=== PATIENT | male | born 1930 | race Caucasian/White ===

== ENCOUNTER 2018-06-22 12:21 | Inpatient (IN) | payer OTHER ==
[~2018-06-22] VITALS: Ht 180.3 cm; Wt 72.6 kg
[2018-06-22 13:15] LABS: ABSOLUTE BASOPHILS 0.1 thou/uL (0.0-0.2); ABSOLUTE EOSINOPHILS 0.1 thou/uL (0.0-0.7); ABSOLUTE LYMPHOCYTES 3.6 thou/uL (0.8-5.3); ABSOLUTE MONOCYTES 0.6 thou/uL (0.0-1.2); ABSOLUTE NEUTROPHILS 5.9 thou/uL (1.6-8.1); BASOPHILS 0.7 %; HEMATOCRIT 32.1 % (42.0-52.0); HEMOGLOBIN 10.7 gm/dL (14.0-18.0); MCH 30.6 pg (26.0-34.0); MCHC 33.2 g/dL (28.0-37.0); MCV 92.1 fL (80.0-100.0); MONOCYTES 5.9 %; MPV 7.3 fl. (7.2-11.1); NUCLEATED RBCS 0 /100WBC; PLATELET COUNT* 250 thou/uL (150-400); POLYS 57.4 %; RBC 3.49 mil/uL (4.50-6.00); RDW-CV 15.1 % (10.5-14.5); WBC 10.3 thou/uL (4.0-11.0)
[2018-06-22 13:29] LABS: ALBUMIN 3.2 g/dL (3.4-5.0); CALCIUM 8.5 mg/dL (8.5-10.1); CREATININE 1.1 mg/dL (0.6-1.3); POTASSIUM 3.7 mmol/L (3.5-5.1); TOTAL BILIRUBIN 0.3 mg/dL (<0.1-1.0)
[2018-06-22 14:02] LABS: URINE BILIRUBIN NEGATIVE (Negative); URINE BLOOD 2+ (Negative); URINE CLARITY CLOUDY; URINE COLOR YELLOW; URINE GLUCOSE-RANDOM 3+ (Negative); URINE KETONES TRACE (Negative); URINE PROTEIN 1+ (Negative); URINE SPECIFIC GRAVITY 1.025 (1.005-1.030); URINE UROBILINOGEN 0.2 E.U./dl (0.2-1.0)
[2018-06-22 14:05] LABS: URINE LEUKOCYTES-REFLEX 2+ (Negative); URINE NITRITE-REFLEX POSITIVE (Negative)
[2018-06-22 14:15] LABS: BACTERIA-REFLEX >30 Many /HPF (None Seen); CASTS None Seen /LPF (None Seen); CRYSTALS None Seen /LPF (None Seen); SQUAMOUS 0-3 Few /LPF (0-3); URINE RBC 0-2 Rare /HPF (0-2); URINE WBC-REFLEX >25 Many /HPF (0-5)
[2018-06-22 20:09] VITALS: BP 174/61
[2018-06-22 20:40] VITALS: BP 158/70
[2018-06-23 07:50] VITALS: BP 143/69
[2018-06-23 15:54] VITALS: BP 136/59
[2018-06-23 16:54] VITALS: BP 136/59
[2018-06-23] MEDS ORDERED: LEVEMIR SUBQ (17:49)
[2018-06-23] MEDS ORDERED: SENNA8.6 MG PO (17:49)
[2018-06-23] MEDS ORDERED: TYLENOL325 MG PO (17:50)
[2018-06-23] MEDS ORDERED: THROAT LOZENGE1 EACH PO (17:50)
[2018-06-23] MEDS ORDERED: HYDROCODON-ACE1 EAC7 PO (17:51)
[2018-06-23] MEDS ORDERED: LOPERAMIDE 2 MG2 M1 PO (17:52)
[2018-06-23] MEDS ORDERED: BAYER CHEWABLE81 MG PO (17:53)
[2018-06-23] MEDS ORDERED: FINASTERIDE5 MG PO (17:53)
[2018-06-23] MEDS ORDERED: METFORMIN HCL500 MG PO (17:54)
[2018-06-23] MEDS ORDERED: ZOCOR20 MG PO (17:54)
[2018-06-23 20:00] VITALS: BP 155/80
[2018-06-24] VITALS: BP 138/57
[2018-06-24 05:03] LABS: CALCIUM 7.9 mg/dL (8.5-10.1); CREATININE 0.9 mg/dL (0.6-1.3); MAGNESIUM 1.6 mg/dL (1.8-2.4); POTASSIUM 3.5 mmol/L (3.5-5.1)
[2018-06-24 07:50] VITALS: BP 145/68
[2018-06-24 13:47] VITALS: BP 145/68
[2018-06-24] MEDS ORDERED: KEFLEX500 M2 PO (14:32)
[2018-06-24 16:00] VITALS: BP 131/65
[2018-06-24 20:02] VITALS: BP 122/60
[2018-06-25 07:40] VITALS: BP 139/60
--- NOTE | 2018-06-25 14:58 | EKG ---
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
[2018-06-25 15:27] VITALS: BP 132/69
[2018-06-26 00:03] VITALS: BP 161/80
[2018-06-26 04:24] LABS: ABSOLUTE EOSINOPHILS 0.2 thou/uL (0.0-0.7); ABSOLUTE LYMPHOCYTES 3.7 thou/uL (0.8-5.3); ABSOLUTE MONOCYTES 0.6 thou/uL (0.0-1.2); ABSOLUTE NEUTROPHILS 4.7 thou/uL (1.6-8.1); BASOPHILS 0.4 %; EOSINOPHILS 2.2 %; HEMATOCRIT 29.6 % (42.0-52.0); HEMOGLOBIN 9.8 gm/dL (14.0-18.0); LYMPHOCYTES 39.8 %; MCH 30.7 pg (26.0-34.0); MCHC 33.1 g/dL (28.0-37.0); MCV 92.8 fL (80.0-100.0); MONOCYTES 6.7 %; MPV 8.1 fl. (7.2-11.1); NUCLEATED RBCS 0 /100WBC; PLATELET COUNT* 241 thou/uL (150-400); POLYS 50.9 %; RBC 3.19 mil/uL (4.50-6.00); RDW-CV 14.7 % (10.5-14.5); WBC 9.3 thou/uL (4.0-11.0)
[2018-06-26 04:37] LABS: CALCIUM 8.2 mg/dL (8.5-10.1); CREATININE 0.9 mg/dL (0.6-1.3); POTASSIUM 3.3 mmol/L (3.5-5.1)
[2018-06-26 08:00] VITALS: BP 135/58
[2018-06-26 13:10] VITALS: BP 145/68
[2018-06-26 16:00] VITALS: BP 168/83
[2018-06-26 19:45] VITALS: BP 156/83
[2018-06-27 01:00] VITALS: BP 141/78
[2018-06-27 05:00] VITALS: BP 154/85
[2018-06-27 08:10] VITALS: BP 137/65
--- NOTE | 2018-06-27 11:38 | OP ---
[facility] [address] [place] [address] OPERATIVE REPORT Name: JACQUI LEONARD Room: [address] IN M.R.#: [id number] Admission: 06/22/18 Attend Phys: Michelle Herring Discharge: Date of : [birth year] Report #: [id number] THIS REPORT FOR: //name// CC: FRANNIE physician/PCP Flaquito Munoz DATE OF SERVICE: 06/22/2018 DIAGNOSIS: Urinary retention. PROCEDURE: Attempted Perez catheter placement, attempted flexible cystoscopy and then placement of suprapubic drain into the bladder. No complication. INDICATIONS: This is an 87-year-old white male with history of prostate cancer. He has urethral stricture. He has seen a urologist over at [facility] and presents now in urinary retention. Nurses were unable to put a Perez catheter in and then I was called. DESCRIPTION OF COURSE: The patient was sterilely prepped and draped. I was unable to get a Perez catheter to go in or a filiform to go into the bladder. I performed flexible cystoscopy, could only get to the mid urethra, very tight urethral stricture, 2 other false passages. I could not get a wire to go. I could get a wire to go past the first urethral stricture, but not the second, and I could not dilate the first urethral strictures as long and dense. I tried multiple ways in which to dilate the stricture, ureteral balloon dilator and Amplatz dilators and still would not be able to stretch it up, so I decided to take him to the operating room; however, he just ate a peanut butter and jelly sandwich about an hour before, so there is increased risk of that and given his advanced age, it was decided to place a suprapubic tube. There was not a standard suprapubic tube in the hospital, so I went to Interventional Radiology and obtained an 8-Croat[place] pigtail drainage tube, and I was able to percutaneously insert that into the bladder, which was done without complications. The urine flow was clear and got out approximately 700 mL of lexie-colored urine. This will be sent for culture. The patient will be given Rocephin and then the plan will be to eventually perform DVIU. As long as this small suprapubic tube is draining, we can leave this and then do a DVIU on an elective basis. This was thoroughly informed to the patient and the patient's daughter was present. <ELECTRONICALLY SIGNED> By: Moises Hyman MD 06/27/18 1138 [id number] Hyman MD /nt
[2018-06-27 17:12] VITALS: BP 114/54
[2018-06-27 22:50] VITALS: BP 138/54
[2018-06-28 08:20] VITALS: BP 143/59
[2018-06-28 11:20] VITALS: BP 145/68
[2018-06-28] MEDS ORDERED: BACTRIM DS TAB1 EACH PO (11:42)
[2018-06-28] MEDS ORDERED: HYDROCODON-ACE1 EAC7 PO (11:43)
[2018-06-28 11:50] VITALS: BP 145/68
[2018-06-28 12:06] VITALS: BP 145/68
[2018-06-28 13:23] VITALS: BP 145/68
== END 2018-06-28 13:41 | DRG 697 ==
LOC: M.ERS 12:21 → M.TBA-ER 18:04 → M.ORTHSURG 18:04 → M.TBA-ER 20:12 → M.ORTHSURG 20:23
PROVIDERS: Family Medicine; Physician Assistant; ADMIT Internal Medicine
PROC: 0T9B80Z Drainage of Bladder with Drainage Device, Via Natural or Artificial Opening Endoscopic (ICD-10-PCS; principal; 2018-06-22)
PROC: 0TJB8ZZ Inspection of Bladder, Via Natural or Artificial Opening Endoscopic (ICD-10-PCS; principal; 2018-06-22)
DX: N35.919 Unspecified urethral stricture, male, unspecified site (principal); N39.0 Urinary tract infection, site not specified; E11.9 Type 2 diabetes mellitus without complications; N36.8 Other specified disorders of urethra; R33.8 Other retention of urine; I25.10 Atherosclerotic heart disease of native coronary artery without angina pectoris; N40.1 Benign prostatic hyperplasia with lower urinary tract symptoms; Z85.46 Personal history of malignant neoplasm of prostate; Z79.84 Long term (current) use of oral hypoglycemic drugs

== ENCOUNTER 2018-11-05 21:05 | Inpatient (IN) | payer OTHER | END 2018-11-09 15:02 | DRG 871 | LOC: M.ERS 21:05 → M.TBA-ER 22:52 → M.2W 11-06 00:36 | PROVIDERS: ADMIT Internal Medicine | DX: A41.9 Sepsis, unspecified organism (principal); J96.00 Acute respiratory failure, unspecified whether with hypoxia or hypercapnia; N10 Acute pyelonephritis; I25.10 Atherosclerotic heart disease of native coronary artery without angina pectoris; F03.90 Unspecified dementia, unspecified severity, without behavioral disturbance, psychotic disturbance, mood disturbance, and anxiety; E86.0 Dehydration; E11.65 Type 2 diabetes mellitus with hyperglycemia; D64.9 Anemia, unspecified; E87.6 Hypokalemia; E53.8 Deficiency of other specified B group vitamins; Z79.899 Other long term (current) drug therapy; Z85.46 Personal history of malignant neoplasm of prostate; Z95.1 Presence of aortocoronary bypass graft ==